=== PATIENT | male | born 1970 | race Caucasian/White ===

== ENCOUNTER 2016-10-06 01:07 | Emergency (ER) | payer OTHER ==
[~2016-10-06] VITALS: Ht 190.5 cm; Wt 190.5 kg
[2016-10-06 08:13] VITALS: BP 142/68
[2016-10-06] MEDS ORDERED: TETANUS-DIPTH-ACEL PERTUSSIS 0.5ML SYRG IM ONE (08:15)
[2016-10-06] MEDS ORDERED: KETOROLAC TROMETH 60MG/2ML VIAL IM ONE (08:15)
== END 2016-10-06 08:50 | disposition home or self-care (01) ==
LOC: ER 01:09
DX: S93.601A Unspecified sprain of right foot, initial encounter (principal); S30.810A Abrasion of lower back and pelvis, initial encounter; E66.9 Obesity, unspecified; Z68.43 Body mass index [BMI] 50.0-59.9, adult; W19.XXXA Unspecified fall, initial encounter; Y93.89 Activity, other specified; Y99.8 Other external cause status; Y92.89 Other specified places as the place of occurrence of the external cause
CPT/HCPCS: 73630; 90471; 90715; 96372; 99284; J1885